=== PATIENT | male | born 1980 | race Caucasian/White ===

== ENCOUNTER 2018-10-21 13:38 | Emergency (ER) | payer MEDICAID, OTHER ==
[2018-10-21 13:44] VITALS: BP 138/87; PULSE 86; RESP 18; TEMP 98.4; O2SAT 99
--- NOTE | 2018-10-21 15:30 | ED PDOC ---
Lower Extremity Pain/Injury Time Seen by Provider: 10/21/18 13:44 Chief Complaint (Nursing): Lower Extremity Problem/Injury Chief Complaint (Provider): Left knee pain History Per: Patient History/Exam Limitations: no limitations Onset/Duration Of Symptoms: Days Current Symptoms Are (Timing): Still Present Additional History Per: Patient Additional Complaint(s): 38yo male, otherwise well and with no past medical history, comes to ER for evaluation of left knee pain x 3 days. He states 3 days ago, he was walking down the stairs when his left knee buckled and he fell to the floor and onto his buttocks. He reports swelling to his left knee and states he has been wrapping the knee, applying tiger balm and icing as well, with no relief. He reports continued pain to the posterior knee and states he has not taken any medications. He reports he is able to bear weight and denies any numbness or tingling. No additional complaints. PMD: None Past Medical History Reviewed: Historical Data, Nursing Documentation, Vital Signs Vital Signs: Last Vital Signs Temp 98.4 F 10/21/18 13:43 Pulse 86 10/21/18 13:43 Resp 18 10/21/18 13:43 BP 138/87 10/21/18 13:43 Pulse Ox 99 10/21/18 13:43 - Medical History PMH: No Chronic Diseases - Surgical History Surgical History: No Surg Hx - Family History Family History: States: No Known Family Hx - Immunization History Hx Tetanus Toxoid Vaccination: No - Home Medications Home Medications: Ambulatory Orders Medication Instructions Recorded Ibuprofen [Motrin] 600 mg PO Q8 #20 tab 04/27/15 Oxycodone HCl/Acetaminophen 1 tab PO Q6 #10 tab 04/27/15 [Percocet 325 mg-5 mg] Sulfamethoxazole/Trimethopri 1 tab PO BID #14 tab 04/27/15 [Bactrim Ds 800 mg-160 mg] Ibuprofen [Motrin Tab] 600 mg PO Q6 PRN 7 Days tab 10/21/18 - Allergies Allergies/Adverse Reactions: Allergies Allergy/AdvReac Type Severity Reaction Status Date / Time No Known Allergies Allergy Verified 10/21/18 13:43 Review of Systems Musculoskeletal: Positive for: Other (left knee pain) Neurological: Negative for: Weakness, Numbness Physical Exam - Reviewed Nursing Documentation Reviewed: Yes Vital Signs Reviewed: Yes - Physical Exam Appears: Positive for: Non-toxic Pulses-Dorsalis Pedis (L): 2+ Pulses-Dorsalis Pedis (R): 2+ Extremity: Positive for: Normal ROM (FROM bilateral knees, ankles and hips), Tenderness (+ tenderness to palpation of left posterior knee; no anterior, medial or lateral knee tenderness), Capillary Refill (< 2 seconds). Negative for: Pedal Edema, Calf Tenderness, Deformity, Other (ecchymosis, swelling or erythema) Neurological/Psych: Positive for: Awake, Symmetric/Intact Strength (5/5 strength bilateral lower extremities), Oriented (x 3) - ECG O2 Sat by Pulse Oximetry: 99 (RA) Pulse Ox Interpretation: Normal Medical Decision Making Medical Decision Makinyo male with left knee pain Plan: -- XR left knee -- Motrin 600mg PO 1533 XR as reviewed by me shows no fractures, dislocations or abnormalities. Patient informed this read is not final and if there are any changes on the official read, he will be notified. On reassessment, he reports feeling much better. Patient is stable for discharge home and instructed to follow up with orthopedist. Scribe Attestation: Documented by Nevin Duarte, acting as a scribe for EVENS Junior Provider Scribe Attestation: All medical record entries made by the Scribe were at my direction and personally dictated by me. I have reviewed the chart and agree that the record accurately reflects my personal performance of the history, physical exam, medical decision making, and the department course for this patient. I have also personally directed, reviewed, and agree with the discharge instructions and disposition. Disposition - Clinical Impression Clinical Impression: Acute knee pain - Patient ED Disposition Is Patient to be Admitted: No - Disposition Referrals: [facility] [Outside] Disposition: Routine/Home Disposition Time: 15:33 Condition: STABLE Additional Instructions: Follow up with orthopedist for further evaluation of knee pain. Take Ibuprofen as needed for pain. Continue to wrap with SADIE bandage for comfort. Prescriptions: Ibuprofen [Motrin Tab] 600 mg PO Q6 PRN 7 Days tab PRN Reason: Pain, Moderate (4-7) Instructions: Knee Pain (DC) Forms: [employer] (Mosotho) Print Language: PASHTO
--- NOTE | 2018-10-21 17:33 | RAD ---
Date of service: 10/21/2018 PROCEDURE: Left knee. HISTORY: Pain. COMPARISON: None. FINDINGS: BONES: Normal. No fracture. JOINTS: Joint spaces preserved. No significant osteoarthritis. JOINT EFFUSION: Suspect small suprapatellar joint effusion. OTHER FINDINGS: None. IMPRESSION: No evidence of acute displaced fracture nor dislocation
== END 2018-10-21 16:02 | disposition home or self-care (01) ==
LOC: H.ER 13:38
DX: M25.562 Pain in left knee (principal); W10.9XXA Fall (on) (from) unspecified stairs and steps, initial encounter